=== PATIENT | male | born 1985 | race Caucasian/White ===

== ENCOUNTER 2017-01-05 08:26 | Emergency (ER) | payer OTHER ==
[2017-01-05] MEDS ORDERED: ONDANSETRON 4 MG ORAL DISINTEGRATING TAB (S0181) As Ordered ONE (09:09)
[2017-01-05] MEDS ORDERED: PROMETHAZINE INJ 25 MG/ML VIAL (J2550) As Ordered ONE (09:53)
--- NOTE | 2017-01-05 12:58 | EDDOCDS ---
Nurse's Notes [facility] Name: Aram Marks Age: 31 yrs Sex: Male : 1985 Arrival Date: 01/05/2017 Time: 08:26 Bed I5 / M5 Private MD: Diagnosis: Nausea and vomiting-likely viral gastroenteritis Presentation: 01/05 08:50 Presenting complaint: Patient states: N/V and weakness began this am. Adult Sepsis mlb1 Screening: The patient does not have new or worsening altered mentation. Patient's respiratory rate is less than 22. Systolic blood pressure is greater than 100. Patient has a qSOFA score of 0- Negative Sepsis Screen. Suicide/Homicide risk assessment- the patient denies having any suicidal and/or homicidal ideations and does not present with any other emotional, behavioral or mental health complaints. Status: Patient is not a customer service voice or dependent. Transition of care: patient was not received from another setting of care. 08:50 Acuity: ISAEL Level 3 mlb1 08:50 Method Of Arrival: Walkin/Carried/Asstd mlb1 Triage Assessment: 08:51 General: Appears ill, Behavior is appropriate for age, cooperative. Pain: Location: mlb1 abdomen Pain currently is 8 out of 10 on a pain scale. Quality of pain is described as crampy. Pt Declines HIV testing. GI: Reports nausea, vomiting. Derm: Skin is pale. Historical: - Allergies: no known allergies; - Home Meds: 1. Adderall XR 10 mg Oral cp24 1 cap once daily - PMHx: ADHD; Bipolar disorder; - PSHx: none; - Social history: Smoking status: Patient states was never smoker of tobacco. No barriers to communication noted, The patient speaks fluent Eritrean, Speaks appropriately for age. - Family history: Not pertinent. - : The pt / caregiver states he / she is not on anticoagulants. Home medication list is obtained from the patient. - Exposure Risk Screening:: None identified. Screenin:12 Screening information is obtained from the patient. Fall risk: No risks identified. jc4 Assistance ADL's: requires no assistance with activities of daily living. Abuse/DV Screen: The patient / caregiver reports he/she is: not in a situation that causes fear, pain or injury. Nutritional screening: No deficits noted. Advance Directives: Currently, there is no health care proxy. There is no active DNR order. There is no living will. There is no Power of Digital Media Strategist. home support is adequate. Assessment: 09:14 General: Appears in no apparent distress, Behavior is cooperative, pleasant. jc4 Neurological: Level of Consciousness is awake, alert, Oriented to person, place, time. EENT: Oral mucosa is dry. Cardiovascular: Heart tones S1 S2 present. Respiratory: Airway is patent Respiratory effort is even, unlabored, Respiratory pattern is regular, symmetrical, Breath sounds are clear bilaterally. GI: Abdomen is non- distended Bowel sounds present X 4 quads. Abd is soft and non tender X 4 quads. Reports vomited x 4 this morning. Derm: Skin is pink, warm & dry. 09:42 General: pt vomiting provider notified . dsf 09:57 Adult Sepsis Screening: The patient does not have new or worsening altered mentation. dsf Patient's respiratory rate is less than 22. Systolic blood pressure is greater than 100. Patient has a qSOFA score of 0- Negative Sepsis Screen. General: Appears in no apparent distress, Behavior is cooperative. Pain: Location: abdomen Pain currently is 8 out of 10 on a pain scale. Quality of pain is described as aching, crampy. Neurological: Level of Consciousness is awake, alert, Oriented to person, place, time. Cardiovascular: Capillary refill < 3 seconds. Respiratory: Airway is patent Respiratory effort is even, unlabored, Respiratory pattern is regular, symmetrical. GI: Reports nausea, vomiting, Pain is 8 out of 10 on a pain scale. Derm: Skin is dry, Skin is pale, Skin temperature is warm. 10:28 General: pt drinking sips of water. pt denies nausea or vomiting . dsf 10:50 General: attempted to discharge pt. Pt sitting on the side of the bed c/o feeling dsf flushed, like he was going to pass out and nauseated. Pt laid down BP 95/53 HR 120. Abad ENCISO notified. . 10:54 General: Abad ENCISO notified of orthostatic VS . dsf 12:26 Adult Sepsis Screening: The patient does not have new or worsening altered mentation. dsf Patient's respiratory rate is less than 22. Systolic blood pressure is greater than 100. Patient has a qSOFA score of 0- Negative Sepsis Screen. General: Appears in no apparent distress, comfortable, Behavior is appropriate for age, cooperative. Pain: Denies pain. Neurological: Level of Consciousness is awake, alert, Oriented to person, place, time. Cardiovascular: Capillary refill < 3 seconds. Respiratory: Airway is patent Respiratory effort is even, unlabored, Respiratory pattern is regular, symmetrical. GI: Denies nausea, vomiting, pain. Derm: Skin is dry, Skin is pale, Skin temperature is warm. 12:41 General: Patient was exiting facility after being given discharge instructions. Patient omari was in hallway and gait became unsteady, he leaned on his visitor and stated "I need a wheelchair". Patient was immediately wheeled back to his room where orthostatic blood pressures and a blood sugar level was obtained. Patient became dizzy upon standing during orthostatic blood pressures, provider notified.. 12:56 General: pt walking out with significant other stating he feels better and wants to go dsf home. Abad ENCIOS observed pt ambulating. Pt informed to come back if sxs get worse . Vital Signs: 08:52 BP 130 / 69; Pulse 90; Resp 16; Temp 99.3(TE); Pulse Ox 100% on R/A; Weight 70.31 kg mlb1 (R); Height 5 ft. 11 in. (180.34 cm) (R); Pain 8/10; 10:54 BP 102 / 58 Supine; Pulse 81; Pulse Ox 97% on R/A; dsf 10:54 BP 102 / 61 Sitting; Pulse 102; Pulse Ox 97% on R/A; dsf 10:54 BP 103 / 56 Standing; Pulse 112; Pulse Ox 98% on R/A; dsf 12:26 BP 105 / 59; Pulse 97; Resp 16; Temp 97.5(T); Pulse Ox 100% on R/A; Pain 0/10; dsf 12:43 BP 99 / 53 Supine; Pulse 91; ja5 12:44 BP 96 / 55 Sitting; Pulse 102; ja5 12:44 BP 93 / 51 Standing; Pulse 107; ja5 08:52 Body Mass Index 21.62 (70.31 kg, 180.34 cm) b1 Vitals: 08:52 Log In Time: January 05, 2017 at 08:23. [facility] ED Course: 08:28 Patient visited by Kezia Church. mm15 08:28 Patient moved to Waiting mm15 08:50 Patient visited by Jeff Dumont, FERCHO. mlb1 08:51 Triage Initiated mlb1 08:53 Patient visited by Jeff Dumont RN. mlb1 08:53 Aidee Turpin, RN is Primary Nurse. mlb1 08:53 Melissa Mcclendon,FERCHO is Primary Nurse. mlb1 08:53 Patient moved to I5 / M5 mlb1 08:59 Abad Cha PA-C is PHCP. ar2 08:59 Kosta Aguilar MD is Attending Physician. ar2 08:59 Patient visited by Abad Cha PA-C. ar2 09:11 The patient / caregiver is instructed regarding the plan of care and ED course. jc4 09:51 Patient visited by Latesha Collazo RN. dsf 09:58 Patient visited by Latesha Collazo RN. dsf 10:16 [facility] [place] Payment Agreement was scanned into [employer] and attached to record. mm15 10:29 Patient visited by Latesha Collazo RN. dsf 11:00 Patient visited by Latesha Collazo RN. dsf 11:29 Inserted saline lock: 20 gauge in left antecubital area. ja5 12:27 Patient visited by Latesha Collazo RN. dsf 12:27 Discontinued lock intact, bleeding controlled, pressure dressing applied, No dsf redness/swelling at site. No procedures done that require assistance. Administered Medications: 09:11 Drug: Ondansetron ODT 4 mg [ondansetron 4 mg disintegrating tablet (1 tabs)] Route: PO; jc4 09:57 Drug: Promethazine 25 mg [promethazine 25 mg/mL injection solution (1 mL)] Route: IM; dsf Site: left deltoid; 11:28 Drug: NS 0.9% 1000 ml [sodium chloride 0.9 % intravenous solution] Route: IV; Rate: ja5 bolus; Site: left antecubital; 12:26 Follow up: IV Status: Completed infusion; IV Intake: 1000ml dsf Point of Care Testing: Blood Glucose: 12:34 Blood Glucose: 117 mg/dL; dsf Ranges: Intake: 12:26 IV: 1000.00ml; Total: 1000.00ml. dsf Order Results: Lab Order: Fingerstick Blood Sugar; SANJU'Kera 01/05/17 12:34 Test: BEDSIDE GLUCOSE; Value: 117; Range: 70-105; Abnormal: Above high normal; Units: MG/DL; Status: F Outcome: 10:43 Discharge ordered by Provider. ar2 12:27 Discharge Assessment: Patient awake, alert and oriented x 3. No cognitive and/or dsf functional deficits noted. Patient verbalized understanding of disposition instructions. patient administered narcotics - no. The following High Risk Discharge criteria are identified: None. Discharged to home ambulatory. Condition: stable. Discharge instructions given to patient, Instructed on discharge instructions, follow up and referral plans. medication usage, diet, Demonstrated understanding of instructions, medications, Pt was receptive of discharge instructions/ teaching. Prescriptions given X 1. No special radiology studies were completed. Property sent home with patient. 12:57 Patient left the ED. dsf Signatures: Jeff Dumont, RN RN mlb1 Abad Cha PA-C PA-C ar2 Aidee Turpin RN RN jc4 Latesha Collazo RN RN dsf Kezia Church mm15 Melissa Mcclendon RN RN ja5 Corrections: (The following items were deleted from the chart) 12:46 12:41 General: Patient was exiting facility after being given discharge instructions. ja5 Patient was in hallway and gait became unsteady, he leaned on his visitor and stated "I need a wheelchair". Patient was immediately wheeled back to his room where orthostatic blood pressures and a blood sugar level was obtained.. [email or web address] 12:50 12:40 General: Mary Kate salcido EDWARDOD
--- NOTE | 2017-01-05 12:58 | EDDOCDS ---
Physician Documentation [facility] Name: Aram Marks Age: 31 yrs Sex: Male : 1985 Arrival Date: 01/05/2017 Time: 08:26 Bed I5 / M5 Private MD: Disposition: 01/05/17 10:43 Discharged to Home/Self Care. Impression: Nausea and vomiting - likely viral gastroenteritis. - Condition is Stable. - Discharge Instructions: Nausea and Vomiting. - Prescriptions for promethazine 25 mg Oral Tablet - take 1 tablet by ORAL route every 6 hours As needed; 12 tablet. - Medication Reconciliation, Local Pharmacy Hours form. - Follow up: Emergency Department; When: As needed; Reason: Fever > 102F, Worsening of conditions. - Problem is new. - Symptoms have improved. Historical: - Allergies: no known allergies; - Home Meds: 1. Adderall XR 10 mg Oral cp24 1 cap once daily - PMHx: ADHD; Bipolar disorder; - PSHx: none; - Social history: Smoking status: Patient states was never smoker of tobacco. No barriers to communication noted, The patient speaks fluent Upper Sorbian, Speaks appropriately for age. - Family history: Not pertinent. - : The pt / caregiver states he / she is not on anticoagulants. Home medication list is obtained from the patient. - Exposure Risk Screening:: None identified. Vital Signs: 01/05 08:52 BP 130 / 69; Pulse 90; Resp 16; Temp 99.3(TE); Pulse Ox 100% on R/A; Weight 70.31 kg / mlb1 155.01 lbs (R); Height 5 ft. 11 in. (180.34 cm) (R); Pain 8/10; 10:54 BP 102 / 58 Supine; Pulse 81; Pulse Ox 97% on R/A; dsf 10:54 BP 102 / 61 Sitting; Pulse 102; Pulse Ox 97% on R/A; dsf 10:54 BP 103 / 56 Standing; Pulse 112; Pulse Ox 98% on R/A; dsf 12:26 BP 105 / 59; Pulse 97; Resp 16; Temp 97.5(T); Pulse Ox 100% on R/A; Pain 0/10; dsf 12:43 BP 99 / 53 Supine; Pulse 91; ja5 12:44 BP 96 / 55 Sitting; Pulse 102; ja5 12:44 BP 93 / 51 Standing; Pulse 107; ja5 08:52 Body Mass Index 21.62 (70.31 kg, 180.34 cm) mlb1 MDM: 09:04 Ondansetron ODT Oral Disintegrating Tablet 4 mg PO once ordered. ar2 09:04 Fluid Challenge ordered. ar2 09:37 Financial registration complete. mm15 09:51 Promethazine 25 mg IM once ordered. ar2 10:16 [facility] Payment Agreement was scanned into [email or web address] and attached to record. mm15 10:56 IV Saline Lock ordered. ar2 10:56 NS 0.9% 1000 ml IV at bolus once ordered. ar2 12:33 Accucheck ordered. ar2 12:45 Fingerstick Blood Sugar Ordered. [facility] Point of Care Testing: Blood Glucose: 12:34 Blood Glucose: 117 mg/dL; dsf Ranges: Administered Medications: 09:11 Drug: Ondansetron ODT 4 mg [ondansetron 4 mg disintegrating tablet (1 tabs)] Route: PO; jc4 09:57 Drug: Promethazine 25 mg [promethazine 25 mg/mL injection solution (1 mL)] Route: IM; dsf Site: left deltoid; 11:28 Drug: NS 0.9% 1000 ml [sodium chloride 0.9 % intravenous solution] Route: IV; Rate: ja5 bolus; Site: left antecubital; 12:26 Follow up: IV Status: Completed infusion; IV Intake: 1000ml dsf Signatures: Dispatcher [facility] Jeff Dumont RN RN mlb1 Abad Cha, PAAshleyC PA-C ar2 Aidee Turpin RN RN jc4 Latesha Collazo RN RN dsf Kezia Church mm15 Melissa Mcclendon RN ja5 The chart was reviewed and I authenticate all verbal orders and agree with the evaluation and treatment provided.Attachments: 10:16 [facility] Payment Agreement mm15 MTDD
--- NOTE | 2017-01-07 14:00 | EDDOCDS ---
Physician Documentation [facility] Name: Aram Marks Age: 31 yrs Sex: Male : 1985 Arrival Date: 01/05/2017 Time: 08:26 Bed I5 / M5 Private MD: Disposition: 01/05/17 10:43 Discharged to Home/Self Care. Impression: Nausea and vomiting - likely viral gastroenteritis. - Condition is Stable. - Discharge Instructions: Nausea and Vomiting. - Prescriptions for promethazine 25 mg Oral Tablet - take 1 tablet by ORAL route every 6 hours As needed; 12 tablet. - Medication Reconciliation, Local Pharmacy Hours form. - Follow up: Emergency Department; When: As needed; Reason: Fever > 102F, Worsening of conditions. - Problem is new. - Symptoms have improved. Historical: - Allergies: no known allergies; - Home Meds: 1. Adderall XR 10 mg Oral cp24 1 cap once daily - PMHx: ADHD; Bipolar disorder; - PSHx: none; - Social history: Smoking status: Patient states was never smoker of tobacco. No barriers to communication noted, The patient speaks fluent Yi, Speaks appropriately for age. - Family history: Not pertinent. - : The pt / caregiver states he / she is not on anticoagulants. Home medication list is obtained from the patient. - Exposure Risk Screening:: None identified. Vital Signs: 01/05 08:52 BP 130 / 69; Pulse 90; Resp 16; Temp 99.3(TE); Pulse Ox 100% on R/A; Weight 70.31 kg / mlb1 155.01 lbs (R); Height 5 ft. 11 in. (180.34 cm) (R); Pain 8/10; 10:54 BP 102 / 58 Supine; Pulse 81; Pulse Ox 97% on R/A; dsf 10:54 BP 102 / 61 Sitting; Pulse 102; Pulse Ox 97% on R/A; dsf 10:54 BP 103 / 56 Standing; Pulse 112; Pulse Ox 98% on R/A; dsf 12:26 BP 105 / 59; Pulse 97; Resp 16; Temp 97.5(T); Pulse Ox 100% on R/A; Pain 0/10; dsf 12:43 BP 99 / 53 Supine; Pulse 91; ja5 12:44 BP 96 / 55 Sitting; Pulse 102; ja5 12:44 BP 93 / 51 Standing; Pulse 107; ja5 08:52 Body Mass Index 21.62 (70.31 kg, 180.34 cm) mlb1 MDM: 09:04 Ondansetron ODT Oral Disintegrating Tablet 4 mg PO once ordered. ar2 09:04 Fluid Challenge ordered. ar2 09:37 Financial registration complete. mm15 09:51 Promethazine 25 mg IM once ordered. ar2 10:16 [facility] Payment Agreement was scanned into [employer] and attached to record. mm15 10:56 IV Saline Lock ordered. ar2 10:56 NS 0.9% 1000 ml IV at bolus once ordered. ar2 12:33 Accucheck ordered. ar2 12:45 Fingerstick Blood Sugar Ordered. [facility] 01/06 11:46 T-Sheet-- Draft Copy was scanned into [employer] and attached to record. gb Point of Care Testing: Blood Glucose: 01/05 12:34 Blood Glucose: 117 mg/dL; dsf Ranges: Administered Medications: 09:11 Drug: Ondansetron ODT 4 mg [ondansetron 4 mg disintegrating tablet (1 tabs)] Route: PO; jc4 09:57 Drug: Promethazine 25 mg [promethazine 25 mg/mL injection solution (1 mL)] Route: IM; dsf Site: left deltoid; 11:28 Drug: NS 0.9% 1000 ml [sodium chloride 0.9 % intravenous solution] Route: IV; Rate: ja5 bolus; Site: left antecubital; 12:26 Follow up: IV Status: Completed infusion; IV Intake: 1000ml dsf Signatures: Dispatcher [employer] Marian Barros, Reg Reg gb Jeff Dumont RN RN mlb1 Abad Cha PA-C PA-C ar2 Aidee Turpin RN RN jc4 Latesha Collazo RN RN dsf Kezia Church mm15 Melissa Mcclendon RN ja5 The chart was reviewed and I authenticate all verbal orders and agree with the evaluation and treatment provided.Attachments: 10:16 [facility] Payment Agreement mm15 01/06 11:46 T-Sheet-- Draft Copy gb Chart Complete MTDD
--- NOTE | 2017-01-07 14:00 | EDDOCDS ---
Nurse's Notes [facility] Name: Aram Marks Age: 31 yrs Sex: Male : 1985 Arrival Date: 01/05/2017 Time: 08:26 Bed I5 / M5 Private MD: Diagnosis: Nausea and vomiting-likely viral gastroenteritis Presentation: 01/05 08:50 Presenting complaint: Patient states: N/V and weakness began this am. Adult Sepsis mlb1 Screening: The patient does not have new or worsening altered mentation. Patient's respiratory rate is less than 22. Systolic blood pressure is greater than 100. Patient has a qSOFA score of 0- Negative Sepsis Screen. Suicide/Homicide risk assessment- the patient denies having any suicidal and/or homicidal ideations and does not present with any other emotional, behavioral or mental health complaints. Status: Patient is not a director of rehabilitative services or dependent. Transition of care: patient was not received from another setting of care. 08:50 Acuity: ISAEL Level 3 mlb1 08:50 Method Of Arrival: Walkin/Carried/Asstd mlb1 Triage Assessment: 08:51 General: Appears ill, Behavior is appropriate for age, cooperative. Pain: Location: mlb1 abdomen Pain currently is 8 out of 10 on a pain scale. Quality of pain is described as crampy. Pt Declines HIV testing. GI: Reports nausea, vomiting. Derm: Skin is pale. Historical: - Allergies: no known allergies; - Home Meds: 1. Adderall XR 10 mg Oral cp24 1 cap once daily - PMHx: ADHD; Bipolar disorder; - PSHx: none; - Social history: Smoking status: Patient states was never smoker of tobacco. No barriers to communication noted, The patient speaks fluent [place]ese, Speaks appropriately for age. - Family history: Not pertinent. - : The pt / caregiver states he / she is not on anticoagulants. Home medication list is obtained from the patient. - Exposure Risk Screening:: None identified. Screenin:12 Screening information is obtained from the patient. Fall risk: No risks identified. jc4 Assistance ADL's: requires no assistance with activities of daily living. Abuse/DV Screen: The patient / caregiver reports he/she is: not in a situation that causes fear, pain or injury. Nutritional screening: No deficits noted. Advance Directives: Currently, there is no health care proxy. There is no active DNR order. There is no living will. There is no Power of Logging Engineer. home support is adequate. Assessment: 09:14 General: Appears in no apparent distress, Behavior is cooperative, pleasant. jc4 Neurological: Level of Consciousness is awake, alert, Oriented to person, place, time. EENT: Oral mucosa is dry. Cardiovascular: Heart tones S1 S2 present. Respiratory: Airway is patent Respiratory effort is even, unlabored, Respiratory pattern is regular, symmetrical, Breath sounds are clear bilaterally. GI: Abdomen is non- distended Bowel sounds present X 4 quads. Abd is soft and non tender X 4 quads. Reports vomited x 4 this morning. Derm: Skin is pink, warm & dry. 09:42 General: pt vomiting provider notified . dsf 09:57 Adult Sepsis Screening: The patient does not have new or worsening altered mentation. dsf Patient's respiratory rate is less than 22. Systolic blood pressure is greater than 100. Patient has a qSOFA score of 0- Negative Sepsis Screen. General: Appears in no apparent distress, Behavior is cooperative. Pain: Location: abdomen Pain currently is 8 out of 10 on a pain scale. Quality of pain is described as aching, crampy. Neurological: Level of Consciousness is awake, alert, Oriented to person, place, time. Cardiovascular: Capillary refill < 3 seconds. Respiratory: Airway is patent Respiratory effort is even, unlabored, Respiratory pattern is regular, symmetrical. GI: Reports nausea, vomiting, Pain is 8 out of 10 on a pain scale. Derm: Skin is dry, Skin is pale, Skin temperature is warm. 10:28 General: pt drinking sips of water. pt denies nausea or vomiting . dsf 10:50 General: attempted to discharge pt. Pt sitting on the side of the bed c/o feeling dsf flushed, like he was going to pass out and nauseated. Pt laid down BP 95/53 HR 120. Abad ENCISO notified. . 10:54 General: Abad ENCISO notified of orthostatic VS . dsf 12:26 Adult Sepsis Screening: The patient does not have new or worsening altered mentation. dsf Patient's respiratory rate is less than 22. Systolic blood pressure is greater than 100. Patient has a qSOFA score of 0- Negative Sepsis Screen. General: Appears in no apparent distress, comfortable, Behavior is appropriate for age, cooperative. Pain: Denies pain. Neurological: Level of Consciousness is awake, alert, Oriented to person, place, time. Cardiovascular: Capillary refill < 3 seconds. Respiratory: Airway is patent Respiratory effort is even, unlabored, Respiratory pattern is regular, symmetrical. GI: Denies nausea, vomiting, pain. Derm: Skin is dry, Skin is pale, Skin temperature is warm. 12:41 General: Patient was exiting facility after being given discharge instructions. Patient omari was in hallway and gait became unsteady, he leaned on his visitor and stated "I need a wheelchair". Patient was immediately wheeled back to his room where orthostatic blood pressures and a blood sugar level was obtained. Patient became dizzy upon standing during orthostatic blood pressures, provider notified.. 12:56 General: pt walking out with significant other stating he feels better and wants to go dsf home. Abad ENCISO observed pt ambulating. Pt informed to come back if sxs get worse . Vital Signs: 08:52 BP 130 / 69; Pulse 90; Resp 16; Temp 99.3(TE); Pulse Ox 100% on R/A; Weight 70.31 kg mlb1 (R); Height 5 ft. 11 in. (180.34 cm) (R); Pain 8/10; 10:54 BP 102 / 58 Supine; Pulse 81; Pulse Ox 97% on R/A; dsf 10:54 BP 102 / 61 Sitting; Pulse 102; Pulse Ox 97% on R/A; dsf 10:54 BP 103 / 56 Standing; Pulse 112; Pulse Ox 98% on R/A; dsf 12:26 BP 105 / 59; Pulse 97; Resp 16; Temp 97.5(T); Pulse Ox 100% on R/A; Pain 0/10; dsf 12:43 BP 99 / 53 Supine; Pulse 91; ja5 12:44 BP 96 / 55 Sitting; Pulse 102; ja5 12:44 BP 93 / 51 Standing; Pulse 107; ja5 08:52 Body Mass Index 21.62 (70.31 kg, 180.34 cm) b1 Vitals: 08:52 Log In Time: January 05, 2017 at 08:23. [facility] ED Course: 08:28 Patient visited by Kezia Church. mm15 08:28 Patient moved to Waiting mm15 08:50 Patient visited by Jeff Dumont, FERCHO. mlb1 08:51 Triage Initiated mlb1 08:53 Patient visited by Jeff Dumont, FERCHO. mlb1 08:53 Aidee Turpin, RN is Primary Nurse. mlb1 08:53 Melissa Mcclendon,FERCHO is Primary Nurse. mlb1 08:53 Patient moved to I5 / M5 mlb1 08:59 Abad Cha PA-C is PHCP. ar2 08:59 Kosta Aguilar MD is Attending Physician. ar2 08:59 Patient visited by Abad Cha PA-C. ar2 09:11 The patient / caregiver is instructed regarding the plan of care and ED course. jc4 09:51 Patient visited by Latesha Collazo RN. dsf 09:58 Patient visited by Latesha Collazo RN. dsf 10:16 [facility] Payment Agreement was scanned into [employer] and attached to record. mm15 10:29 Patient visited by Latesha Collazo RN. dsf 11:00 Patient visited by Latesha Collazo RN. dsf 11:29 Inserted saline lock: 20 gauge in left antecubital area. ja5 12:27 Patient visited by Latesha Collazo RN. dsf 12:27 Discontinued lock intact, bleeding controlled, pressure dressing applied, No dsf redness/swelling at site. No procedures done that require assistance. 01/06 11:46 T-Sheet-- Draft Copy was scanned into [employer] and attached to record. gb Administered Medications: 01/05 09:11 Drug: Ondansetron ODT 4 mg [ondansetron 4 mg disintegrating tablet (1 tabs)] Route: PO; jc4 09:57 Drug: Promethazine 25 mg [promethazine 25 mg/mL injection solution (1 mL)] Route: IM; dsf Site: left deltoid; 11:28 Drug: NS 0.9% 1000 ml [sodium chloride 0.9 % intravenous solution] Route: IV; Rate: ja5 bolus; Site: left antecubital; 12:26 Follow up: IV Status: Completed infusion; IV Intake: 1000ml dsf Point of Care Testing: Blood Glucose: 12:34 Blood Glucose: 117 mg/dL; dsf Ranges: Intake: 12:26 IV: 1000.00ml; Total: 1000.00ml. dsf Order Results: Lab Order: Fingerstick Blood Sugar; MICHAEL 01/05/17 12:34 Test: BEDSIDE GLUCOSE; Value: 117; Range: 70-105; Abnormal: Above high normal; Units: MG/DL; Status: F Outcome: 10:43 Discharge ordered by Provider. ar2 12:27 Discharge Assessment: Patient awake, alert and oriented x 3. No cognitive and/or dsf functional deficits noted. Patient verbalized understanding of disposition instructions. patient administered narcotics - no. The following High Risk Discharge criteria are identified: None. Discharged to home ambulatory. Condition: stable. Discharge instructions given to patient, Instructed on discharge instructions, follow up and referral plans. medication usage, diet, Demonstrated understanding of instructions, medications, Pt was receptive of discharge instructions/ teaching. Prescriptions given X 1. No special radiology studies were completed. Property sent home with patient. 12:57 Patient left the ED. dsf Signatures: Marian Barros, Mani Reg gb Jeff Dumont RN RN mlb1 Abad Cha PA-C PA-C ar2 Aidee Turpin RN RN jc4 Latesha Collazo,RN RN dsf Kezia Church mm15 Melissa Mcclendon RN RN ja5 Corrections: (The following items were deleted from the chart) 12:46 12:41 General: Patient was exiting facility after being given discharge instructions. ja5 Patient was in hallway and gait became unsteady, he leaned on his visitor and stated "I need a wheelchair". Patient was immediately wheeled back to his room where orthostatic blood pressures and a blood sugar level was obtained.. ja5 12:50 12:40 General: ja5 ja5 Chart Complete MTDD
--- NOTE | 2017-01-07 14:00 | EDDOCDS ---
Physician Documentation [facility] Name: Aram Marks Age: 31 yrs Sex: Male : 1985 Arrival Date: 01/05/2017 Time: 08:26 Bed I5 / M5 Private MD: Disposition: 01/05/17 10:43 Discharged to Home/Self Care. Impression: Nausea and vomiting - likely viral gastroenteritis. - Condition is Stable. - Discharge Instructions: Nausea and Vomiting. - Prescriptions for promethazine 25 mg Oral Tablet - take 1 tablet by ORAL route every 6 hours As needed; 12 tablet. - Medication Reconciliation, Local Pharmacy Hours form. - Follow up: Emergency Department; When: As needed; Reason: Fever > 102F, Worsening of conditions. - Problem is new. - Symptoms have improved. Historical: - Allergies: no known allergies; - Home Meds: 1. Adderall XR 10 mg Oral cp24 1 cap once daily - PMHx: ADHD; Bipolar disorder; - PSHx: none; - Social history: Smoking status: Patient states was never smoker of tobacco. No barriers to communication noted, The patient speaks fluent Azeri, Speaks appropriately for age. - Family history: Not pertinent. - : The pt / caregiver states he / she is not on anticoagulants. Home medication list is obtained from the patient. - Exposure Risk Screening:: None identified. Vital Signs: 01/05 08:52 BP 130 / 69; Pulse 90; Resp 16; Temp 99.3(TE); Pulse Ox 100% on R/A; Weight 70.31 kg / mlb1 155.01 lbs (R); Height 5 ft. 11 in. (180.34 cm) (R); Pain 8/10; 10:54 BP 102 / 58 Supine; Pulse 81; Pulse Ox 97% on R/A; dsf 10:54 BP 102 / 61 Sitting; Pulse 102; Pulse Ox 97% on R/A; dsf 10:54 BP 103 / 56 Standing; Pulse 112; Pulse Ox 98% on R/A; dsf 12:26 BP 105 / 59; Pulse 97; Resp 16; Temp 97.5(T); Pulse Ox 100% on R/A; Pain 0/10; dsf 12:43 BP 99 / 53 Supine; Pulse 91; ja5 12:44 BP 96 / 55 Sitting; Pulse 102; ja5 12:44 BP 93 / 51 Standing; Pulse 107; ja5 08:52 Body Mass Index 21.62 (70.31 kg, 180.34 cm) mlb1 MDM: 09:04 Ondansetron ODT Oral Disintegrating Tablet 4 mg PO once ordered. ar2 09:04 Fluid Challenge ordered. ar2 09:37 Financial registration complete. mm15 09:51 Promethazine 25 mg IM once ordered. ar2 10:16 [facility] Payment Agreement was scanned into [employer] and attached to record. mm15 10:56 IV Saline Lock ordered. ar2 10:56 NS 0.9% 1000 ml IV at bolus once ordered. ar2 12:33 Accucheck ordered. ar2 12:45 Fingerstick Blood Sugar Ordered. [facility] 01/06 11:46 T-Sheet-- Draft Copy was scanned into [employer] and attached to record. gb Point of Care Testing: Blood Glucose: 01/05 12:34 Blood Glucose: 117 mg/dL; dsf Ranges: Administered Medications: 09:11 Drug: Ondansetron ODT 4 mg [ondansetron 4 mg disintegrating tablet (1 tabs)] Route: PO; jc4 09:57 Drug: Promethazine 25 mg [promethazine 25 mg/mL injection solution (1 mL)] Route: IM; dsf Site: left deltoid; 11:28 Drug: NS 0.9% 1000 ml [sodium chloride 0.9 % intravenous solution] Route: IV; Rate: ja5 bolus; Site: left antecubital; 12:26 Follow up: IV Status: Completed infusion; IV Intake: 1000ml dsf Signatures: Dispatcher [employer] EDCO Marian Barros, Reg Reg gb Jeff Dumont RN RN mlb1 Abad Cha PA-C PA-C ar2 Aidee Turpin RN RN jc4 Latesha Collazo RN RN dsf Kezia Church mm15 Melissa Mcclendon RN ja5 The chart was reviewed and I authenticate all verbal orders and agree with the evaluation and treatment provided.Attachments: 10:16 [facility] Payment Agreement mm15 01/06 11:46 T-Sheet-- Draft Copy gb Chart Complete MTDD
== END 2017-01-05 12:57 | disposition home or self-care (01) ==
LOC: M ED 08:26
DX: A08.4 Viral intestinal infection, unspecified (principal); F90.9 Attention-deficit hyperactivity disorder, unspecified type; F31.9 Bipolar disorder, unspecified; Z79.899 Other long term (current) drug therapy

== ENCOUNTER 2017-04-22 19:12 | Emergency (ER) | payer OTHER ==
[~2017-04-22] VITALS: Ht 180.3 cm; Wt 74.8 kg
[2017-04-22 19:13] VITALS: BP 152/79
[2017-04-22] MEDS ORDERED: ACET50TAOT PO (19:18)
[2017-04-22] MEDS ORDERED: KEFL500C7 PO (19:27)
== END 2017-04-22 19:41 | disposition home or self-care (01) ==
LOC: M ED 19:33
DX: L03.012 Cellulitis of left finger (principal)

== ENCOUNTER 2018-05-23 12:37 | Day surgery (SDC) | payer OTHER | END 2018-05-23 15:19 | disposition home or self-care (01) | LOC: M OPP 12:37 | DX: R12 Heartburn (principal); K21.9 Gastro-esophageal reflux disease without esophagitis; G43.909 Migraine, unspecified, not intractable, without status migrainosus; R06.83 Snoring; F90.9 Attention-deficit hyperactivity disorder, unspecified type; F17.210 Nicotine dependence, cigarettes, uncomplicated; Z79.899 Other long term (current) drug therapy | CPT/HCPCS: 91035 ==

== ENCOUNTER → 2019-04-18 | Outpatient (CLI) | payer OTHER ==
[~2019-04-18] MED LIST: ACET500T15 PO; KEFL500C17 PO; OMEP40CA2 PO
[2019-04-18 10:38] LABS: BLOOD UREA NITROGEN 16 MG/DL (7-18); CALCIUM LEVEL 9.2 MG/DL (8.5-10.1); CARBON DIOXIDE LEVEL 33 MEQ/L (21-32); CHLORIDE LEVEL 104 MEQ/L (98-107); CHOLESTEROL LEVEL 136 MG/DL (<200); CHOLESTEROL RISK RATIO 3.317 (<5); CREATININE FOR GFR 1.02 MG/DL (0.70-1.30); GLOMERULAR FILTRATION RATE > 60.0 (>60); GLUCOSE, FASTING 85 MG/DL (70-100); HDL CHOLESTEROL 41 MG/DL (>40); LDL CHOLESTEROL 69 MG/DL (<100); NON-HDL-C 95 MG/DL; POTASSIUM SERUM 4.1 MEQ/L (3.5-5.1); SODIUM LEVEL 142 MEQ/L (136-145); TRIGLYCERIDES LEVEL 129 MG/DL (<150)
== END ==
LOC: M LAB 09:37
PROVIDERS: ATTEND Obstetrics & Gynecology
DX: Z13.220 Encounter for screening for lipoid disorders (principal); Z13.1 Encounter for screening for diabetes mellitus; Z31.69 Encounter for other general counseling and advice on procreation

== ENCOUNTER → 2019-05-21 | Outpatient (REF) | payer OTHER ==
[2019-05-21 12:23] LABS: SEMEN APPEARANCE OPAQUE (OPAQUE); SEMEN VISCOSITY LIQUID (LIQUID); SPERM CONCENTRATION 87.4 M/ml (>=15.0); WBC CONCENTRATION <=1 M/ml (<=1 M/ml)
== END ==
LOC: M SFHCPLAZ 12:03
PROVIDERS: ATTEND Obstetrics & Gynecology
DX: Z13.220 Encounter for screening for lipoid disorders (principal); Z13.1 Encounter for screening for diabetes mellitus; Z31.69 Encounter for other general counseling and advice on procreation

== ENCOUNTER → 2020-11-19 | Outpatient (CLI) | payer OTHER ==
[~2020-11-19] MED LIST changes: -OMEP40CA2 PO; +OMEP40CA97 PO
== END ==
LOC: M LABSMTC 13:25
PROVIDERS: ATTEND Family Medicine
DX: Z20.828 Contact with and (suspected) exposure to other viral communicable diseases (principal)

== ENCOUNTER → 2020-11-25 | Outpatient (CLI) | payer OTHER | LOC: M LABSMTC 12:04 | PROVIDERS: ATTEND Family Medicine | DX: Z20.828 Contact with and (suspected) exposure to other viral communicable diseases (principal) ==

== ENCOUNTER → 2020-12-25 | Outpatient (CLI) | payer OTHER ==
[2020-12-25 10:33] LABS: HEMATOCRIT 46.6 % (42.0-52.0); HEMOGLOBIN 15.7 g/dl (13.5-17.5); MEAN CORPUSCULAR HEMOGLOBIN 29.2 pg (27.0-33.0); MEAN CORPUSCULAR HGB CONC 33.7 g/dl (32.0-36.5); MEAN CORPUSCULAR VOLUME 86.6 fl (80.0-96.0); PLATELET COUNT, AUTOMATED 260 10^3/uL (150-450); RED BLOOD COUNT 5.38 10^6/uL (4.30-6.10); WHITE BLOOD COUNT 7.4 10^3/uL (4.0-10.0)
[2020-12-25 11:03] LABS: ALBUMIN 4.5 GM/DL (3.2-5.2); ALT/SGPT 28 U/L (12-78); BILIRUBIN,TOTAL 1.7 MG/DL (0.2-1.0); BLOOD UREA NITROGEN 19 MG/DL (7-18); CALCIUM LEVEL 9.8 MG/DL (8.5-10.1); CARBON DIOXIDE LEVEL 32 MEQ/L (21-32); CHLORIDE LEVEL 103 MEQ/L (98-107); CHOLESTEROL LEVEL 165 MG/DL (<200); CHOLESTEROL RISK RATIO 3.235 (<5); CREATININE FOR GFR 1.09 MG/DL (0.70-1.30); FREE T4 1.21 NG/DL (0.76-1.46); GLOMERULAR FILTRATION RATE > 60.0 (>60); GLUCOSE, FASTING 91 MG/DL (70-100); HDL CHOLESTEROL 51 MG/DL (>40); LDL CHOLESTEROL 91 MG/DL (<100); NON-HDL-C 114 MG/DL; POTASSIUM SERUM 4.4 MEQ/L (3.5-5.1); SODIUM LEVEL 139 MEQ/L (136-145); THYROID STIMULATING HORMONE 0.849 uIU/ML (0.358-3.740); TOTAL PROTEIN 7.5 GM/DL (6.4-8.2); TRIGLYCERIDES LEVEL 113 MG/DL (<150)
== END ==
LOC: M LAB 09:44
PROVIDERS: ATTEND Student in an Organized Health Care Education/Training Program
DX: F31.9 Bipolar disorder, unspecified (principal); F41.0 Panic disorder [episodic paroxysmal anxiety]

== ENCOUNTER → 2021-02-09 | Outpatient (REF) | payer OTHER | LOC: M SFHCPLAZ 13:30 | PROVIDERS: ATTEND Family Medicine | DX: F31.9 Bipolar disorder, unspecified (principal); Z53.9 Procedure and treatment not carried out, unspecified reason ==

== ENCOUNTER → 2021-03-03 | Outpatient (CLI) | payer OTHER ==
[2021-03-03 14:08] LABS: ALBUMIN 4.2 GM/DL (3.2-5.2); ALT/SGPT 24 U/L (12-78); BILIRUBIN,TOTAL 0.7 MG/DL (0.2-1.0); BLOOD UREA NITROGEN 16 MG/DL (7-18); CALCIUM LEVEL 9.2 MG/DL (8.5-10.1); CARBON DIOXIDE LEVEL 26 MEQ/L (21-32); CHLORIDE LEVEL 105 MEQ/L (98-107); CREATININE FOR GFR 0.98 MG/DL (0.70-1.30); GLOMERULAR FILTRATION RATE > 60.0 (>60); GLUCOSE, FASTING 114 MG/DL (70-100); SODIUM LEVEL 140 MEQ/L (136-145)
== END ==
LOC: M LAB 12:08
PROVIDERS: ATTEND Student in an Organized Health Care Education/Training Program
DX: F31.9 Bipolar disorder, unspecified (principal)

== ENCOUNTER 2022-07-04 19:22 | Emergency (ER) | payer MEDICARE, OTHER ==
[~2022-07-04] VITALS: Ht 180.3 cm; Wt 76.4 kg
[2022-07-04 19:22] VITALS: BP 123/74
[~2022-07-04 19:22] MED LIST changes: +OMEP40CA4 PO; -OMEP40CA97 PO
[2022-07-04] MEDS ORDERED: CEPHALEXIN 500 MG CAP PO ONE (21:25)
[2022-07-04] MEDS ORDERED: DERMABOND TOPICAL SKIN ADHESIVE TOP ONE (21:25)
[2022-07-04] MEDS ORDERED: CEPH500C PO (21:29)
== END 2022-07-04 21:50 | disposition home or self-care (01) ==
LOC: M ED 19:22
DX: S61.215A Laceration without foreign body of left ring finger without damage to nail, initial encounter (principal); Y92.099 Unspecified place in other non-institutional residence as the place of occurrence of the external cause; Z79.899 Other long term (current) drug therapy

== ENCOUNTER → 2023-02-12 | Outpatient (CLI) | payer MEDICARE, MEDICAID ==
[~2023-02-12] MED LIST changes: +CEPH500C PO
[2023-02-12 09:19] LABS: HEMATOCRIT 44.6 % (42.0-52.0); HEMOGLOBIN 14.8 g/dl (13.5-17.5); MEAN CORPUSCULAR HEMOGLOBIN 29.7 pg (27.0-33.0); MEAN CORPUSCULAR HGB CONC 33.2 g/dl (32.0-36.5); MEAN CORPUSCULAR VOLUME 89.6 fl (80.0-96.0); PLATELET COUNT, AUTOMATED 256 10^3/uL (150-450); RED BLOOD COUNT 4.98 10^6/uL (4.30-6.10); WHITE BLOOD COUNT 5.4 10^3/uL (4.0-10.0)
[2023-02-12 09:56] LABS: ALBUMIN 4.3 G/DL (3.2-5.2); ALKALINE PHOSPHATASE 67 U/L (46-116); ALT/SGPT 19 U/L (7.0-40); AST/SGOT 19 U/L (<34); BILIRUBIN,TOTAL 1.6 MG/DL (0.3-1.2); BLOOD UREA NITROGEN 21 MG/DL (9-23); CALCIUM LEVEL 9.2 MG/DL (8.5-10.1); CARBON DIOXIDE LEVEL 31 MMOL/L (20-31); CHLORIDE LEVEL 104 MMOL/L (98-107); CHOLESTEROL LEVEL 163 MG/DL (<200); CHOLESTEROL RISK RATIO 2.72 (<5); CREATININE FOR GFR 0.96 MG/DL (0.70-1.30); GLOMERULAR FILTRATION RATE > 60.0 (>60); GLUCOSE, FASTING 90 MG/DL (60-100); HDL CHOLESTEROL 59.9 MG/DL (>40); LDL CHOLESTEROL 87.1 MG/DL (<100); NON-HDL-C 103.1 MG/DL; POTASSIUM SERUM 4.6 MMOL/L (3.5-5.1); SODIUM LEVEL 140 MMOL/L (136-145); TOTAL PROTEIN 6.6 G/DL (5.7-8.2); TRIGLYCERIDES LEVEL 80 MG/DL (<150)
== END ==
LOC: M LAB 08:59
PROVIDERS: ATTEND Student in an Organized Health Care Education/Training Program
DX: Z00.00 Encounter for general adult medical examination without abnormal findings (principal); F31.9 Bipolar disorder, unspecified

== ENCOUNTER → 2024-02-24 | Outpatient (CLI) | payer MEDICARE, MEDICAID ==
[2024-02-24 10:59] LABS: BASO % 0.3 % (0.0-1.0); EOS # 0.1 10^3/uL (0.0-0.5); EOS % 1.9 % (0.0-3.0); HEMATOCRIT 44.1 % (42.0-52.0); HEMOGLOBIN 14.8 g/dl (13.5-17.5); LYMPH # 1.9 10^3/uL (1.5-5.0); MEAN CORPUSCULAR HEMOGLOBIN 29.8 pg (27.0-33.0); MEAN CORPUSCULAR HGB CONC 33.6 g/dl (32.0-36.5); MEAN CORPUSCULAR VOLUME 88.7 fl (80.0-96.0); MONO # 0.4 10^3/uL (0.0-0.8); MONO % 6.6 % (2.0-8.0); NEUTROPHILS # 4.2 10^3/uL (1.5-8.5); NEUTROPHILS % 62.1 % (36.0-66.0); PLATELET COUNT, AUTOMATED 293 10^3/uL (150-450); RED BLOOD COUNT 4.97 10^6/uL (4.30-6.10); WHITE BLOOD COUNT 6.7 10^3/uL (4.0-10.0)
[2024-02-24 11:26] LABS: ALBUMIN 4.5 G/DL (3.2-5.2); ALKALINE PHOSPHATASE 65 U/L (46-116); ALT/SGPT 15 U/L (7.0-40); AST/SGOT 13 U/L (<34); BILIRUBIN,TOTAL 1.4 MG/DL (0.3-1.2); BLOOD UREA NITROGEN 20 MG/DL (9-23); CALCIUM LEVEL 9.6 MG/DL (8.5-10.1); CARBON DIOXIDE LEVEL 32 MMOL/L (20-31); CHLORIDE LEVEL 106 MMOL/L (98-107); CHOLESTEROL LEVEL 146 MG/DL (<200); CHOLESTEROL RISK RATIO 2.99 (<5); GLOMERULAR FILTRATION RATE > 60.0 (>60); GLUCOSE, FASTING 88 MG/DL (60-100); HDL CHOLESTEROL 48.8 MG/DL (>40); LDL CHOLESTEROL 75.8 MG/DL (<100); NON-HDL-C 97.2 MG/DL; POTASSIUM SERUM 4.4 MMOL/L (3.5-5.1); SODIUM LEVEL 144 MMOL/L (136-145); TOTAL PROTEIN 6.7 G/DL (5.7-8.2); TRIGLYCERIDES LEVEL 107 MG/DL (<150)
[2024-02-24 11:33] LABS: HEMOGLOBIN A1c 5.2 % (4.0-6.0)
== END ==
LOC: M PLALAB 08:57
PROVIDERS: ATTEND Student in an Organized Health Care Education/Training Program
DX: R55 Syncope and collapse (principal); F31.9 Bipolar disorder, unspecified; Z79.899 Other long term (current) drug therapy

== ENCOUNTER → 2024-04-05 | Outpatient (CLI) | payer MEDICARE, MEDICAID ==
[2024-04-05 19:29] LABS: TOTAL 25(OH) VITAMIN D 23.8 NG/ML (20.0-100.0)
== END ==
LOC: M PLAIMG 15:34
PROVIDERS: ATTEND Student in an Organized Health Care Education/Training Program
DX: R07.81 Pleurodynia (principal); R53.83 Other fatigue; Z79.899 Other long term (current) drug therapy

== ENCOUNTER → 2024-08-09 | Outpatient (REF) | payer MEDICARE, MEDICAID | LOC: M SFHCPLAZ 15:06 | PROVIDERS: ATTEND Family Medicine | DX: Z79.899 Other long term (current) drug therapy (principal); Z11.4 Encounter for screening for human immunodeficiency virus [HIV]; K21.9 Gastro-esophageal reflux disease without esophagitis ==

== ENCOUNTER → 2024-08-13 | Outpatient (CLI) | payer MEDICARE, MEDICAID ==
[2024-08-13 11:21] LABS: BASO % 0.5 % (0.0-1.0); EOS # 0.1 10^3/uL (0.0-0.5); EOS % 2.4 % (0.0-3.0); HEMATOCRIT 43.6 % (42.0-52.0); HEMOGLOBIN 14.6 g/dl (13.5-17.5); LYMPH # 1.8 10^3/uL (1.5-5.0); MEAN CORPUSCULAR HEMOGLOBIN 29.7 pg (27.0-33.0); MEAN CORPUSCULAR HGB CONC 33.5 g/dl (32.0-36.5); MEAN CORPUSCULAR VOLUME 88.8 fl (80.0-96.0); MONO # 0.5 10^3/uL (0.0-0.8); MONO % 8.2 % (2.0-8.0); NEUTROPHILS # 3.4 10^3/uL (1.5-8.5); NEUTROPHILS % 58.7 % (36.0-66.0); PLATELET COUNT, AUTOMATED 264 10^3/uL (150-450); RED BLOOD COUNT 4.91 10^6/uL (4.30-6.10); WHITE BLOOD COUNT 5.8 10^3/uL (4.0-10.0)
[2024-08-13 11:46] LABS: ALBUMIN 4.5 G/DL (3.2-5.2); ALKALINE PHOSPHATASE 56 U/L (46-116); ALT/SGPT 17 U/L (7.0-40); AST/SGOT 13 U/L (<34); BILIRUBIN,TOTAL 2.2 MG/DL (0.3-1.2); BLOOD UREA NITROGEN 17 MG/DL (9-23); CALCIUM LEVEL 9.6 MG/DL (8.5-10.1); CARBON DIOXIDE LEVEL 32 MMOL/L (20-31); CHLORIDE LEVEL 104 MMOL/L (98-107); CREATININE FOR GFR 0.99 MG/DL (0.70-1.30); GLOMERULAR FILTRATION RATE > 60.0 (>60); GLUCOSE, FASTING 91 MG/DL (60-100); POTASSIUM SERUM 4.3 MMOL/L (3.5-5.1); SODIUM LEVEL 140 MMOL/L (136-145); TOTAL PROTEIN 7.1 G/DL (5.7-8.2)
[2024-08-13 11:48] LABS: FREE T4 1.37 NG/DL (0.89-1.76)
[2024-08-13 12:18] LABS: HIV 1&2 SCREEN NEGATIVE (NEGATIVE)
== END ==
LOC: M LAB 09:22 → M PLALAB 09:22
DX: Z11.4 Encounter for screening for human immunodeficiency virus [HIV] (principal); Z79.899 Other long term (current) drug therapy; K21.9 Gastro-esophageal reflux disease without esophagitis

== ENCOUNTER → 2025-05-28 | Outpatient (REF) | payer MEDICARE ==
[~2025-05-28] MED LIST changes: +ALBU8.5H INH; +FAMO1TAB11 PO; +PANT20TA6 PO; +QUET50TA4 PO
== END ==
LOC: M SFHCPLAZ 16:48
PROVIDERS: ATTEND Family Medicine
DX: Z53.9 Procedure and treatment not carried out, unspecified reason (principal)

== ENCOUNTER → 2025-06-04 | Outpatient (CLI) | payer MEDICARE ==
[2025-06-04 18:00] LABS: BASO # 0.0 10^3/uL (0.0-0.2); BASO % 0.4 % (0.0-1.0); EOS # 0.2 10^3/uL (0.0-0.5); EOS % 2.7 % (0.0-3.0); LYMPH # 2.0 10^3/uL (1.5-5.0); LYMPH % 28.6 % (24.0-44.0); MONO # 0.7 10^3/uL (0.0-0.8); MONO % 9.3 % (2.0-8.0); NEUTROPHILS # 4.2 10^3/uL (1.5-8.5); NEUTROPHILS % 58.9 % (36.0-66.0); PLATELET COUNT, AUTOMATED 250 10^3/uL (150-450)
[2025-06-04 18:03] LABS: ALT/SGPT 21 U/L (7.0-40); AST/SGOT 19 U/L (<34); CALCIUM LEVEL 9.9 MG/DL (8.5-10.1); CARBON DIOXIDE LEVEL 30 MMOL/L (20-31); CHLORIDE LEVEL 106 MMOL/L (98-107); CHOLESTEROL LEVEL 158 MG/DL (<200); CHOLESTEROL RISK RATIO 3.67 (<5); CREATININE FOR GFR 1.04 MG/DL (0.70-1.30); GLOMERULAR FILTRATION RATE > 90.0 (>60); LDL CHOLESTEROL 83.6 MG/DL (<100); MAGNESIUM LEVEL 2.0 MG/DL (1.8-2.4); NON-HDL-C 115.0 MG/DL; POTASSIUM SERUM 4.7 MMOL/L (3.5-5.1); SODIUM LEVEL 145 MMOL/L (136-145); TRIGLYCERIDES LEVEL 157 MG/DL (<150)
[2025-06-04 18:04] LABS: TOTAL 25(OH) VITAMIN D 35.9 NG/ML (20.0-100.0); VITAMIN B12 LEVEL 585 PG/ML (211-911)
[2025-06-04 18:05] LABS: FREE T4 1.28 NG/DL (0.89-1.76)
== END ==
LOC: M PLALAB 12:44
DX: Z79.899 Other long term (current) drug therapy (principal)
CPT/HCPCS: 36415; 80053; 80061; 82306; 82607; 82746; 83735; 84439; 84443; 85025; G0480

== ENCOUNTER → 2025-10-08 | Outpatient (REF) | payer MEDICARE | LOC: M SFHCPLAZ 15:57 | PROVIDERS: ATTEND Family Medicine | DX: Z53.9 Procedure and treatment not carried out, unspecified reason (principal) ==

== ENCOUNTER → 2025-10-22 | Outpatient (CLI) | payer MEDICARE, MEDICAID ==
[~2025-10-22] MED LIST changes: +ISOVUE-370 76% 100 ML VIAL ONE
== END ==
LOC: M PLAIMG 07:38
DX: R59.0 Localized enlarged lymph nodes (principal); J43.9 Emphysema, unspecified
CPT/HCPCS: 70491; Q9967